=== PATIENT | female | born 1945 | race Caucasian/White ===

== ENCOUNTER 2016-09-09 15:13 | Emergency (ER) | payer OTHER ==
[2016-09-09 17:29] LABS: HEMOGLOBIN 12.8 gm/dl (12.3-15.3); RED BLOOD COUNT 4.65 M/UL (4.00-5.10); WHITE BLOOD COUNT 9.9 K/UL (4.5-11.0)
[2016-09-09 18:48] LABS: BUN/CREATININE RATIO 29 (0-10)
== END 2016-09-09 20:15 | disposition home or self-care (01) ==
LOC: ER1 15:13
PROVIDERS: Physician Assistant
DX: R55 Syncope and collapse (principal); I10 Essential (primary) hypertension; E03.9 Hypothyroidism, unspecified; Z88.6 Allergy status to analgesic agent; Z79.899 Other long term (current) drug therapy
CPT/HCPCS: 36415; 70450; 71010; 80053; 82550; 82553; 83690; 83874; 84484; 85025; 93005; 96374; 99285; J2405